=== PATIENT | male | born 1960 | race Caucasian/White ===

== ENCOUNTER 2018-07-21 06:55 | Observation (INO) | payer BC, OTHER ==
[~2018-07-21] VITALS: Ht 182.9 cm; Wt 133.8 kg
--- NOTE | ~2018-07-21 | P ---
[facility] [place] [address] PROCEDURE REPORT Name: EMMANUEL DOMÍNGUEZ Room #: 208-P [facility] Byron Sinha#: [id number] Admission: 07/21/18 Attend Phys: Reggie Lord MD Discharge: 07/22/18 Date of : 64 Report #: [id number] THIS REPORT FOR: //name// CC: Reggie Miller DATE OF SERVICE: 07/21/2018 PREOPERATIVE DIAGNOSIS: Atrial flutter. POSTOPERATIVE DIAGNOSIS: Atrial flutter. HISTORY: The patient is a 57-year-old with a history of symptomatic PVCs as well as SVT, who had been having increased PVCs. He was here for PVC ablation. We stopped his medications on Saturday. The patient reports that this morning, he went into SVT with associated palpitations and lightheadedness and in the preoperative room, he was in atrial flutter at a rate of 190-200 beats per minute. Adenosine demonstrated this was flutter. He is here for EP study, possible SVT ablation, possible PVC ablation. ANESTHESIA: The patient underwent MAC anesthesia with no anesthesia related complications. DESCRIPTION OF PROCEDURE: The patient underwent informed consent. We discussed the details of the procedure including the risks, which include but not limited to bleeding, vascular damage, cardiac perforation, stroke and OR. He understood these risks and is willing to proceed. As such, the patient was brought to the EP laboratory in a fasting and nonsedated state. He was prepped and draped in a sterile fashion. Next, I obtained access to the bilateral femoral veins placing an 8- and 6-Croatian short sheath in the right femoral vein and a 6- and 7-Croatian short sheath in the left femoral vein and then, I placed a 5-Croatian short sheath into the right femoral artery, all via the modified Seldinger technique. Next, I placed 3 quadripolar catheters at the HRA, His, and RV positions and a decapolar catheter easily in the coronary sinus. At baseline, the patient was in atrial flutter with a ventricular cycle length of 485 milliseconds, QRS duration 90 milliseconds, QT interval 310 milliseconds and atrial cycle length of 240 milliseconds with a proximal to distal activation along the coronary sinus and I then placed up Duo-Deca halo catheter and there was evidence of counterclockwise flutter. The AH interval was 140 milliseconds and the HV interval was 50 milliseconds. Next, I performed pacing from both the right and left atrium and entrainment from halo 1, 2 demonstrated a PPI minus tachycardia cycle length of 30 milliseconds consistent with cavotricuspid isthmus dependent flutter. 3D MAPPING AND ABLATION: Next, I exchanged my 8-Croatian short sheath for a ramp sheath and a [employer] [place] SmartTouch ThermoCool ablation catheter. We [facility] [address] [place] [address] PROCEDURE REPORT Name: EMMANUEL DOMÍNGUEZ Room #: 208-P NENITA Sinha#: [id number] Admission: 07/21/18 Attend Phys: Reggie Lord MD Discharge: 07/22/18 Date of : 64 Report #: [id number] created a detailed 3D geometry and performed 3D mapping of the right atrium. Next, ablation was performed at 40 dye and a continuous drag lesion was created and there was termination of his atrial flutter. I then performed pacing and there was not evidence of bidirectional block yet. There was a slight gap along my midline, which I had noted while performing my ablation lesion. I took my ablation catheter to the site and performed additional ablation and after ablating here, there was clearly no evidence of bidirectional block with transisthmus conduction time of 150 milliseconds. The patient did not have a significant conversion pause when sinus rhythm was restored. POST-ABLATION TESTING: Post-ablation, an EP study was performed. AV block was noted at 290 milliseconds. Atrial ERP was noted at 240 milliseconds at a [address] cycle length with no jumps and no echoes. Double atrial extrastimuli were delivered and no SVT was induced. Next, ventricular pacing was performed and VA block was noted at 370 milliseconds. Ventricular ERP was noted at 210 milliseconds at a [address] cycle lengths with conduction both midline and decremental. Next, isoproterenol was started at 1 mcg per minute and AV block was noted at 280 milliseconds. Atrial ERP was noted at 220 milliseconds at a [address] cycle length. Aggressive pacing was performed and I could not induce SVT. I then increased isoproterenol at 2 mcg per minute. During this entire period of time, we did not see any of his clinical PVCs. We monitored for 30-40 minutes and then turned off the isoproterenol, continued monitoring and he did not have a single PVC. At this point, the procedure was concluded and sedation was turned off. The patient had 2-3 PVCs and span of 10-15 minutes. These were left bundle branch block transitioned in V2 positive in II, III and aVF. 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 However, we did not have significant enough burden to ablate this today. As such, the procedure was concluded. Catheters and sheaths were pulled. Hemostasis was obtained. The patient awoke neurologically and hemodynamically intact. CONCLUSIONS: 1. Successful ablation of atrial flutter with evidence of bidirectional block. 2. Normal SA johny function. 3. Normal AV johny function. 4. Normal His-Purkinje function. 5. No other inducible arrhythmias on or off isoproterenol. 6. Infrequent premature ventricular contractions today for ablation. RECOMMENDATIONS: 1. The patient will be monitored in the hospital overnight and we will [facility] [address] [place] [address] PROCEDURE REPORT Name: EMMANUEL DOMÍNGUEZ Room #: 208-P [facility] Byron Sinha#: [id number] Admission: 07/21/18 Attend Phys: Reggie Lord MD Discharge: 07/22/18 Date of : 64 Report #: [id number] reinitiate antiarrhythmic drugs. 2. We will reevaluate for possible PVC ablation in the future. <ELECTRONICALLY SIGNED> By: Reggie Lord MD 07/31/18 0832 1141 [id number] Reggie Lord MD /nt
--- NOTE | ~2018-07-21 | EKG ---
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
--- NOTE | ~2018-07-21 | D ---
[facility] [place] [address] DISCHARGE SUMMARY Name: EMMANUEL DOMÍNGUEZ Room #: 208-P [facility] MBiaRBia#: [id number] Admission: 07/21/18 Attend Phys: Reggie Lord MD Discharge: 07/22/18 Date of : 64 Report #: [id number] THIS REPORT FOR: //name// CC: Reggie Miller DATE OF SERVICE: 07/22/2018 DISCHARGE DIAGNOSES: 1. Atrial flutter with rapid ventricular response. 2. Premature ventricular contractions. HISTORY OF PRESENT ILLNESS: The patient is 57-year-old, history of symptomatic PVCs as well as SVT, who is here for PVC ablation. On the morning of presentation, the patient reports that he went into rapid SVT with palpitations and was found to be in atrial flutter. He was taken for EP study and found to have typical atrial flutter, which was successfully ablated. He had insufficient PVC burden to perform a PVC ablation. HOSPITAL COURSE: The patient was monitored in the CCU overnight. On telemetry, the patient did well. He had one short burst of atrial tachycardia lasting about 5-10 seconds. He had infrequent PVCs. He was feeling well, without any chest pain or shortness of breath. PHYSICAL EXAMINATION: HEART: Regular rate and rhythm. LUNGS: Clear to auscultation bilaterally. ABDOMEN: Soft, nontender. EXTREMITIES: No clubbing, cyanosis or edema and groins with no hematoma or bruising. DISPOSITION: As such, he was deemed stable for discharge home. He will be discharged on flecainide 150 b.i.d., atenolol and Pradaxa 150 b.i.d. He will follow up in 3 months. Discharge instructions were reviewed. <ELECTRONICALLY SIGNED> By: Reggie Lord MD 07/31/18 0832 0848 1135 Reggie Lord MD /nt
[2018-07-21 07:23] VITALS: BP 136/79
[2018-07-21] MEDS ORDERED: ASPIRIN325 PO (07:30)
[2018-07-21] MEDS ORDERED: ATENOLOL 25 MG25 M1 PO ×2 (07:30→15:26)
[2018-07-21] MEDS ORDERED: FLECAINIDE ACET50 M1 PO (07:31)
[2018-07-21 07:34] LABS: BASOPHILS 0.8 % (0.0-2.0); EOSINOPHILS 2.9 % (0.0-3.0); HEMATOCRIT 48.7 % (42.0-52.0); HEMOGLOBIN 16.5 gm/dL (14.0-18.0); LYMPHOCYTES 31.5 % (24.0-44.0); MCH 27.7 pg (26.0-34.0); MCHC 33.9 g/dL (28.0-37.0); MCV 81.8 fL (80.0-100.0); MONOCYTES 11.8 % (1.0-8.0); PLATELET COUNT 168 thou/uL (150-400); RBC 5.96 mil/uL (4.50-6.00); WBC 5.6 thou/uL (4.0-11.0)
[2018-07-21 07:45] LABS: CREATININE 0.9 mg/dL (0.7-1.3); POTASSIUM 3.6 mmol/L (3.5-5.1)
[2018-07-21 07:46] LABS: APTT 27.4 Seconds (24.5-32.8); INR 1.1
[2018-07-21 07:50] LABS: ALBUMIN 3.9 g/dL (3.4-5.0); TOTAL BILIRUBIN 0.7 mg/dL (<0.1-1.0)
[2018-07-21 19:13] VITALS: BP 133/85
[2018-07-21 23:50] VITALS: BP 135/77
[2018-07-22 04:49] VITALS: BP 137/79
[2018-07-22 08:10] VITALS: BP 134/79
[2018-07-22] MEDS ORDERED: PRADAXA150 MG PO (08:38)
[2018-07-22] MEDS ORDERED: FLECAINIDE ACET50 M1 PO (08:39)
[2018-07-22 09:59] VITALS: BP 134/79
== END 2018-07-22 10:35 | disposition home or self-care (01) ==
LOC: CATH 06:55 → 2N 14:41 → ENTRNSPT 07-22 10:27 → EDTRNSPTSTS 07-22 10:33 → 2N 07-22 10:35
PROVIDERS: Internal Medicine Cardiovascular Disease
DX: I48.92 Unspecified atrial flutter (principal); I49.3 Ventricular premature depolarization
CPT/HCPCS: 10797; 62110; 62900; 70005